=== PATIENT | female | born 1975 | race Caucasian/White ===

== ENCOUNTER 2020-02-13 10:05 | Observation (INO) | payer BC, SELFPAY ==
[2020-02-09 12:14] VITALS: BMI 30.4
[2020-02-09 12:25] LABS: Add Urine Microscopic? YES; Bilirubin Urine Neg (NEGATIVE); Blood Urine Trace (Negative); Glucose Urine UA Norm (Normal); Ketones Urine Negative (Negative); Leukocyte Esterase Urine Negative (Negative); Nitrate Urine Negative (Negative); OR HCG Qualitative Urine Negative (Negative); Protein Urine Neg (Negative); Urine Appearance Clear (CLEAR); Urine Color Yellow (Yellow); Urobilinogen Urine Norm (Negative)
[2020-02-09 12:36] LABS: Add Urine Culture? No; Bacteria Urine 1+; Mucus Urine TRACE; RBC Urine 0-4 /hpf (0-2)
--- NOTE | 2020-02-09 12:42 | ANES.PREANE2 ---
Pre-Anesthetic Assessment Pre-Anesthetic Assessment: Height/Weight: Height 1.73 m Weight 90.718 kg Preop Diagnosis: Cervical intraepithelial neoplasia 2, Dysmenorrhea Proposed Procedure: Operation Date: 02/13/20 07:00 Proposed Procedures p Laparoscopic Assist Vaginal Hystectomy 39708 N87.1 N94.6(Not Applicable) - Jadiel Olguin MD s poss Total Laparoscopic Hysterectomy(Not Applicable) - Jadiel Olguin MD Familial anesthetic complications: none Social: Social History: Tobacco Packs per day: 1 ppd Exam: Pre-Anes Outpt Exam: alert, oriented x 3, clear to auscultation bilaterally and regular rate & rhythm Airway: Cervical ROM: WNL MP: 2 Dentition: Partials Pulmonary: Pulmonary: None reported CV/HEM: CV/HEM: Arrythmia Comments: tachycardia : : None reported Hepatic: Hepatic: None reported GI: GI: None reported Metabolic: Metabolic: None reported Musc/skel: Musc/skel: Lower Back Pain Neuropsych: Neuropsych: None reported Anesthetic Plan: ASA status: 2 Anesthesia: General Risk of > 500 ml blood loss (7ml/kg in children): No PFSH Anesthesia PFSH: Medical History (Updated 12/19/19 @ 13:57 by Jadiel Olguin MD) Migraine with aura and without status migrainosus Social History Smoking and tobacco status: current every day smoker cigarettes Packs smoked per day: 1 Alcohol intake: current Alcohol intake frequency: few times a week Substance/Drug Use: never Additional social history: well balanced diet Female Reproductive History: Para: 2 Spontaneous abortions: No Data Anesthesia Other Labs: Laboratory Results - last 48 hr 02/09/20 02/09/20 12:07 12:07 Urine Color Yellow Urine Appearance Clear Urine pH 6.0 Ur Specific [place] 1.020 Urine Protein Neg Urine Glucose (UA) Norm Urine Ketones Negative Urine Blood Trace H Urine Nitrate Negative Urine Bilirubin Neg Urine Urobilinogen Norm Ur Leukocyte Esterase Negative Urine RBC 0-4 H Urine WBC 10-15 H Ur Squamous Epith Cells 5-10 H Urine Bacteria 1+ H Urine Mucus Trace Urine HCG, Qual Negative Cardiac Studies: No Data to Display
[2020-02-09 12:54] LABS: Basophils % 0.6 %; Eosinophils # 0.1 10^3/uL (0.0-0.8); Eosinophils % 1.6 %; Hematocrit 44.8 % (37.0-47.0); Hemoglobin 15.2 g/dL (11.5-15.3); Lymphocytes # 2.2 10^3/uL (0.8-4.8); Lymphocytes % 33.2 %; Mean Corpuscular HGB Conc 33.9 g/dL (30.0-36.0); Mean Corpuscular Hemoglobin 32.4 pg (28.0-34.0); Mean Corpuscular Volume 95.5 fL (81-99); Mean Platelet Volume 10.3 fL (7.4-10.4); Monocytes # 0.5 10^3/uL (0.2-0.9); Monocytes % 6.9 %; Neutrophils # 3.9 10^3/uL (1.8-7.7); Neutrophils % 57.4 %; Nucleated Red Blood Cells % 0 %; Platelet Count 288 10^3/cmm (130-400); Red Blood Count 4.69 10^6/uL (4.1-5.3); Red Cell Distribution Width 12.2 % (12.1-15.1); White Blood Count 6.7 10^3/uL (4.0-10.0)
[2020-02-13] VITALS (20 sets, daily range): BP systolic 120–152; BP diastolic 78–104; PULSE 67–88; RESP 12–23; TEMP 36.2–36.7; O2SAT 97–100
[2020-02-13] MEDS: ketorolac 30 mg/mL INJ IVP (06:29)
[2020-02-13] MEDS: sodium chloride 0.9% 1,000 ML 30 ML IV (06:29)
[2020-02-13] MEDS: phenazopyridine 100 mg Tablet 200 MG PO ×2 (06:30→14:26)
[2020-02-13 06:35] LABS: OR HCG Qualitative Urine Negative (Negative)
[2020-02-13] MEDS: scopolamine 1.5 Patch 1 PATCH TRANSDERMA (06:36)
--- NOTE | 2020-02-13 06:46 | P.HPUD_ITS ---
Surgery/Procedure H&P Update DATE OF PROCEDURE: February 13, 2020 DATE H&P PERFORMED: 02/09/20 H&P UPDATE INFORMATION: I have reviewed H&P completed within last 30 days, I have examined patient prior to procedure, No changes to prior documentation and H&P is in [facility] [place] on date indicated PREOP DIAGNOSIS: Cervical intraepithelial neoplasia 2, Dysmenorrhea PLANNED PROCEDURE: Operation Date: 02/13/20 07:00 Proposed Procedures p Laparoscopic Assist Vaginal Hystectomy 11763 N87.1 N94.6(Not Applicable) - Jadiel Olguin MD s poss Total Laparoscopic Hysterectomy(Not Applicable) - Jadiel Olguin MD
--- NOTE | 2020-02-13 07:00 | P.ANESUD_ITS ---
Pre-Anesthetic Update Pre-Anesthetic Assessment: Date of Surgery/Procedure: 02/13/20 Preop Ramona gnosis: Cervical intraepithelial neoplasia 2, Dysmenorrhea Proposed Procedure: Operation Date: 02/13/20 07:00 Proposed Procedures p Laparoscopic Assist Vaginal Hystectomy 94229 N87.1 N94.6(Not Applicable) - Jadiel Olguin MD s poss Total Laparoscopic Hysterectomy(Not Applicable) - Jadiel Olguin MD Any changes to Pre-Anesthetic Assessment?: No Last Intake: Intake Last Liquid Date 02/12/20 Last Liquid Time 21:30 Last Solid Date 02/12/20 Labs Last 48hrs: Laboratory Results - last 48 hr 02/13/20 06:10 Urine HCG, Qual Negative Vitals: Temperature 98.1 F 02/13/20 06:20 Temperature Source Temporal Artery S can 02/13/20 06:20 Pulse Rate 74 02/13/20 06:20 Respiratory Rate 18 02/13/20 06:20 Blood Pressure 120/83 02/13/20 06:20 Blood Pressure [place] n 95 02/13/20 06:20 Pulse Oximetry 98 02/13/20 06:20 Oxygen Delivery Me thod 02/13/20 06:20 Exam: Pre-Anes Outpt Exam: alert, oriented x 3, clear to auscultation bilaterally and regular rate & rhythm Cardiac Studies: No Data to Display
--- NOTE | 2020-02-13 08:44 | SUR.OPER ---
Updated partner via cell phone on patient progress.
--- NOTE | 2020-02-13 09:55 | P.OP_ITS ---
Operative Report Date of procedure: February 13, 2020 Pre-op Diagnosis: Cervical intraepithelial neoplasia 2, Dysmenorrhea Post-op Diagnosis: Cervical intraepithelial neoplasia 2, Dysmenorrhea Procedure Done: Total laparoscopic hysterectomy with bilateral salpingectomy Specimens removed/disposition: Uterus, cervix, bilateral fallopian tubes Surgeon: Jadiel Olguin [employer] Management Professor: RENATO Zaman Anesthesia: General Estimated blood loss (mL): 100 IV fluids (mL): 900 Complications: None Brief History: Patient is a 44-year-old 2, para 2-0-0-2 who is status post tubal ligation. She presented to the office due to abnormal Pap smears. She had had 2 prior LEEP's. Her most recent Pap smear had shown ASCUS with positive high risk HPV. Colposcopy was performed which showed NELY-2. On exam in the office she had essentially no cervix left within the vagina with the cervix essentially flush with the vaginal wall. This precluded any further LEEPs. In addition she had also been having significant cramping with her periods. Questions were answered. She is presenting for hysterectomy. Procedure: The patient was taken to the operating room where general anesthesia was obtained. She was prepped and draped in the usual sterile fashion in the dorsal supine position with legs in Matthew style stirrups. Sequential compression boots were placed prior to starting the case. Garner catheter was inserted and exam under anesthesia was performed. She was found to have minimal uterine prolapse. Weighted speculum was placed in the vagina and the cervix was grasped with a single-tooth tenaculum. Size 35 McCarus-Volker Fornisee uterine manipulator was placed. The infraumbilical region was injected with 0.5% Marcaine plain. Skin incision was made with a knife in the lower edge of the navel and a size 10 trocar and sheath were inserted under direct visualization using an Optiview type technique. Trocar was removed and replaced with just the laparoscope confirming intra-abdominal placement. The anterior abdominal wall was inspected and noted to be free of adhesions. In the right and left lower quadrants, lateral to the inferior epigastric vessels, the skin was injected with 0.5% Marcaine plain. Skin incisions were made with the knife and a 5 mm trocar and sheath were inserted under direct visualization at each site. Approximately 2 cm above the pubic symphysis in the midline, the skin was injected with 0.5% Marcaine plain. Skin incision was made with a knife and a 5 mm trocar and sheath were inserted under direct visualization. The pelvis was thoroughly inspected. Evidence of prior tubal ligation was seen. Ovaries and tubes appeared normal. No uterine abnormalities noted. Using the Voyant sealing device, the left mesosalpinx was sealed and cut and the dissection carried under the tube until the corner of the uterus was reached. The utero-ovarian ligament and vessels were sealed and cut. The round ligament was sealed and cut and the dissection carried along the lateral aspect of the uterus to approximately the level of the internal os. The broad ligament was and dissection carried over the lower uterine segment. Using the Voyant sealing device, the right mesosalpinx was sealed and cut and the dissection carried under the tube until the corner of the uterus was reached. The utero-ovarian ligament and vessels were sealed and cut.. The round ligament was sealed and cut and the dissection carried along the lateral aspect of the uterus to approximate the level of the internal os. The broad ligament was and the dissection carried over the lower uterine segment to meet with the dissection from the contralateral side. The bladder was dissected away from the lower uterine segment. The uterine vessels were sealed at the level of the cervix and cut bilaterally. Using monopolar cautery with the hook attachment, the vagina was opened anteriorly to the edge of the cup of the uterine manipulator. Using the cup as a guide, the vagina was opened circumferentially around the cervix. Once the cervix was completely free from the vagina, the uterus was removed through the vagina. Minimal bleeding was present from the vaginal cuff. Using 2-0 PDO barbed suture, the cuff was closed in a running fashion . This was started on the right side and was carried across to the left side. Care was taken to incorporate the peritoneum posteriorly and the vaginal mucosa anteriorly and posteriorly into the closure. The anterior peritoneum at the vaginal cuff was closed over top of the vaginal cuff itself using the 2-0 PDO suture. The cuff was noted to be hemostatic. The pelvis was thoroughly irrigated and noted to be hemostatic. The areas of dissection were inspected under normal and low pressure at the end of the procedure. The abdomen was deflated and the ports removed. The 5 mm sites were closed with single stitches of 4-0 Vicryl suture. The umbilical site was closed with a deep stitch of 4-0 Vicryl suture followed by subcuticular closure of the skin. Steri-Strips were applied. The vagina was inspected and the cuff was noted to be reapproximated well. The cuff itself was noted to be hemostatic vaginally. Patient tolerated the procedures well. Sponge needle and instrument counts were correct. DRAINS: Garner catheter FINDINGS: Minimal uterine prolapse. Cervix was flush with the vaginal wall. Evidence of prior tubal ligation noted. Otherwise normal-appearing uterus, tub es, and ovaries. POSTOPERATIVE STATUS: The patient was transferred to the recovery room in satisfactory condition.
--- NOTE | 2020-02-13 09:56 | SUR.PHASEI ---
0970 PATIENT TO PACU AT THIS TIME. RR EVEN AND UNLABORED. PWD. PLACED ON SIMPLE MASK AT 8L, SPO2 100%. PATIENT NOTED TO BE SLEEPING. VALERA CATH IN PLACE. 4 INCISIONS TO ABDOMEN, CDI.
[2020-02-13] MEDS: fentaNYL 50 mcg/mL INJ 2mL IVP (10:09)
--- NOTE | 2020-02-13 10:24 | SUR.PHASEI ---
1024 PATIENT REPORTS PAIN 8/, DUE TO NEEDING TO VOID. VALERA IN PLACE, DRAINING. DR ORTA NOTIFIED.
--- NOTE | 2020-02-13 10:44 | SUR.PHASEI ---
1028 PATIENT TO OB AT THIS TIME. RR EVEN AND UNLABORED. PATIENT COMPLAIN OF SENSATION NEEDING TO VOID. AMBULATORY FROM GURNEY TO BED WITHOUT DIFFICULTY.
[2020-02-13] MEDS: morphine 4 mg/mL SDV 1 mL IVP ×2 (10:56→11:31)
[2020-02-13] MEDS: HYDROcodone-acetaminophen 5-325 mg Tablet PO ×2 (10:56→18:34)
[2020-02-13] MEDS: dextrose 5%-lactated ringers 1,000 ML 125 ML IV (11:27)
--- NOTE | 2020-02-13 17:31 | PM.DCS ---
Discharge Providers Date of Admission: 02/13/20 10:05 Date of Discharge: February 13, 2020 Attending Provider at Admission: Jadiel Olguin MD Attending Provider at Discharge: Jadiel Olguin MD Primary Care Provider: Dakota Bird MD Diagnoses at Discharge Discharge Diagnosis (1) Cervical intraepithelial neoplasia II: Status: Acute (2) Dysmenorrhea: Status: Acute Reason for Visit Reason for Visit: Reason For Visit: Recurrent NELY 2 Dysmenorrhea Hospital Course Hospital Course: Patient is a 44-year-old white female 2, para 2-0-0-2 is status post tubal ligation. She has a history of recurrent NELY-2. She has had 2 prior LEEP's. Her most recent Pap smear showed ASCUS with positive high risk HPV. Colposcopy was performed which again showed NELY-2. However, on exam, she had essentially no cervix left vaginally with the cervix essentially flush with the vagina. As a result hysterectomy was recommended. In addition she was reporting significant cramping with her periods as well. At this point she was presenting for hysterectomy. A total laparoscopic hysterectomy with bilateral salpingectomy was performed on 02/13/2020. She did well following surgery. Patient was admitted to the floor for post operative management. She was initially treated with parenteral pain medications but was able to be switched to oral medications later on in the afternoon and did well with these. She was able to ambulate without lightheadedness or dizziness. Garner catheter was discontinued later on in the day. She was started on clear liquids and tolerated this well without nausea or vomiting. By the evening of the day of surgery, she was doing well and was requesting to go home. PHYSICAL EXAM: See below. PLAN Discharged home. Discharge instructions discussed with patient. Patient instructed to use stool softeners at home. She was given prescriptions for Pyridium, ibuprofen, and Hayes. Physical Exam Const: COMMON NORMALS: no apparent distress, average body habitus, alert and well nourished GENERAL APPEARANCE: well developed ORIENTATION/CONSCIOUSNESS: Yes oriented to person, Yes oriented to place and Yes oriented to time GI: COMMON NORMALS: soft to palpation, no hepatosplenomegaly and no masses INSPECTION: Yes incision (Clean dry and intact with bandages present.) AUSCULTATION: Yes normoactive bowel sounds PALPATION: Yes soft, Yes tender (Mildly tender in the lower abdomen.), Yes no hepatosplenomegaly and No hernia : EXTERNAL FEMALE EXAM: No hernia Neuro: SENSORIUM/ORIENTATION: Yes alert, Yes oriented to person, Yes oriented to place and Yes oriented to time Psych: COMMON NORMALS: affect normal MOOD & AFFECT: Yes euthymic mood Urinary Catheter Management^: Garner: Cath Placed During This Visit: yes Urinary Catheter Date of Insertion: 02/13/20 Urinary Catheter Time of Insertion: 07:45 Discharge Data Data Completed and Pending: Pending at discharge Category Date Time Status ES surgery / GI i mages Routine Exams 02/13/20 06:44 Ordered Hemagram Timed Lab 02/14/20 05:00 Ordered Pathology: Surgic al [PTH] Routine Pth 02/13/20 09:57 Received Labs from last 24 hours 02/13/20 02/13/20 06:20 06:10 Urine HCG, Qual Negative Blood Type B Positive Rho(D) Type Positive Antibody Screen Negative Vitals: Last Vital Signs Temp 97.7 F 02/13/20 15:30 Pulse 88 02/13/20 16:44 Resp 18 02/13/20 16:44 BP 134/82 02/13/20 15:30 Pulse Ox 98 02/13/20 16:44 Discharge Plan Discharge Patient Disposition: Home, Self-Care Condition: Stable Prescriptions: New hydrocodone-acetaminophen 5-325 mg Tablet 1 - 2 tab PO Q6H PRN (Reason: Moderate To Severe Pain) Qty: 30 RF: 0 ibuprofen 800 mg Tablet 800 mg PO TID PRN (Reason: pain) Qty: 40 RF: 0 phenazopyridine 200 mg tablet 200 mg PO TID PRN (Reason: Bladder irritation) Qty: 12 RF: 0 Continued diphenhydramine HCl [Benadryl] 25 mg capsule 25 mg PO .night PRN (Reason: sleep) RF: 0 Discharge Orders: Discharge Order (Routine); Ordered 02/13/20 Ordered By: Jadiel Olguin Referrals: Jadiel Olguin MD [Physician] - 2 weeks Discharge Diet: Regular Discharge Activity: Limit activity as instructed Patient Instructions: OB Abdominal Surgery - [facility] Discharge Attestations Time Spent in Discharge Care*: less than 30 min Quality Metrics Clinical Quality Measures During this hospital stay, did patient experience: None Coding Level of Care Code Acute Rehab Services Aide for Chg Fwd Diagnoses Cervical intraepithelial neoplasia II N87.1 Dysmenorrhea N94.6
[2020-02-13] MEDS: docusate sodium 100 mg Capsule PO (18:34)
== END 2020-02-13 18:30 | disposition home or self-care (01) ==
LOC: OBGYN 10:06
PROVIDERS: Admitting Provider Obstetrics & Gynecology; Family Provider Family Medicine; PCP Family Medicine; Visit Provider Obstetrics & Gynecology
PROC: 0UT94ZZ Resection of Uterus, Percutaneous Endoscopic Approach (ICD-10-PCS; CPT 58571; 2020-02-13 07:00)
DX: N87.1 Moderate cervical dysplasia (principal); F17.210 Nicotine dependence, cigarettes, uncomplicated; N94.6 Dysmenorrhea, unspecified
CPT/HCPCS: 58571; 12345; 51798; 81001; 84703; 85025; 86850; 86900; 87086; 88307; 96360; 96361; 96374; 96375; G0378; J0690; J1885; J2001; J2250; J2270; J2405; J2704; J3010; J3490; J7030

== ENCOUNTER 2021-10-06 15:06 | Outpatient (CLI) | payer OTHER, SELFPAY ==
--- NOTE | 2021-10-06 15:21 | MM_ITS ---
WS: [id number] BILATERAL SCREENING DIGITAL MAMMOGRAM WITH CAD HISTORY: SCREENING COMPARISON: 10/06/2018 and 06/21/2017 Bilateral CC and MLO views submitted. Computer aided detection analyzed. Breast composition: There are scattered areas of fibroglandular density. No suspicious masses, microc alcifications or architectural distortion. MM/[place] [id number] IMPRESSION: BI-RADS: 1-Negative FOLLOW UP: 1 Year Follow-up
== END 2021-10-06 15:07 | disposition home or self-care (01) ==
LOC: RADSHAW 15:11
PROVIDERS: PCP Family Medicine; Visit Provider Family Medicine
DX: Z12.31 Encounter for screening mammogram for malignant neoplasm of breast (principal)
CPT/HCPCS: 77067

== ENCOUNTER 2022-11-17 15:05 | Outpatient (CLI) | payer OTHER, SELFPAY ==
--- NOTE | 2022-11-17 15:21 | MM_ITS ---
WS: [id number] VIEWS: MLO and CC views both breasts. 3D digital tomosynthesis is also included in this exam. Comparison made with prior exam of 12/18/2014, 03/27/2016, 06/21/2017, 10/06/2018, 10/06/2021.. Findings: There was no sign of mass, architectural distortion or suspicious calcification in either breast. Sc attered fibroglandular densities MM/[place] [id number] Impression: BI-RADS: 2-Benign FOLLOW-UP: 1 Year Follow-up This mammogram was also analyzed by the Computer Aided Detection System R2 Imag e Director [employer].
== END 2022-11-17 15:06 | disposition home or self-care (01) ==
PROVIDERS: PCP Family Medicine; Visit Provider Family Medicine
DX: Z12.31 Encounter for screening mammogram for malignant neoplasm of breast (principal)
CPT/HCPCS: 77063; 77067

== ENCOUNTER 2023-03-30 20:11 | Emergency (ER) | payer OTHER, SELFPAY ==
--- NOTE | 2023-03-30 20:15 | ECG_ITS ---
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 Measurements Intervals [place] Rate: 174 P: 0 IN: 0 QRS: -29 QRSD: 97 T: 30 QT: 250 QTc: 426 Interpretive Statements SUPRAVENTRICULAR TACHYCARDIA BORDERLINE LEFT AXIS DEVIATION [QRS AXIS < -20] INCOMPLETE RIGHT BUNDLE BRANCH BLOCK [90+ ms QRS DURATION, TERMINAL R IN V1/V2, 40+ ms S IN I/aVL/V4/V5/V6] MINIMAL ST DEPRESSION [0.025+ mV ST DEPRESSION] CRITICAL TEST RESULT No previous ECG available for comparison Electronically Signed On 03-31-2023 0:23:11 CDT by Atul Russ M.D. [id number]
[2023-03-30 20:32] VITALS: BP 164/78; PULSE 174; RESP 18; O2SAT 98; BMI 32.6
--- NOTE | 2023-03-30 20:35 | PC.NURSE ---
PROVIDER PRESENT AT BEDSIDE. PROVIDER ATTEMPTED TO CONVERT PATIENT USING VAGAL MANEUVER X 2. PATIENT DID NOT RESPOND. HEART RATE REMAINED IN 180S. 2237 - 6 ADENOSINE ADMINISTERED BY PROVIDER, HR 160. HR CONVERTED TO 118. PATIENT ALERT AND ORIENTED, SPEAKING TO NURSE. MONITOR PATIENT FOR 10 MINUTES PER PROVIDER.
--- NOTE | 2023-03-30 20:38 | ED_ITS ---
HPI - Arrhythmia/Palpitations General: Chief Complaint: Arrhythmia/Palpitations Stated Complaint: heart racing Time Seen by Provider: 03/30/23 20:25 Source: patient Mode of arrival: ambulatory Limitations: no limitations History of Present Illness: 47-year-old female who does have a history of SVT she states she is at work tonight started to like her heart was racing roughly 30 minutes ago states she is typically able to convert herself with vagal maneuvers but was not able to tonight. She is in SVT with a heart rate in the 170s she denies any pain does have some diaphoresis which she states is typical for her SVT. Denies any shortness of breath currently. Associated symptoms: Deny anxiety or nausea Review of Systems Const: Denies: fever(s) Card: Reports: palpitations Resp: Denies: dyspnea GI: Denies: nausea Skin/Breast: Denies: rash Neuro: Denies: headache(s) Psych: Denies: anxiety PFSH ED PFSH: Medical History Migraine with aura and without status migrainosus Surgical History History of hysterectomy (02/13/20) Total laparoscopic hysterectomy with bilateral salpingectomy. Dx: NELY 2, Dysmenorrhea. Performbed by Dr. Olguin at [facility] in [place], [place]. S/P carpal tunnel release (~2012) Bilateral S/P section (11/24/00) With tubal ligation. Performed by Dr. Nunez at [facility] in [place], [place]. S/P tubal ligation (11/24/00) Performed at time of section by Dr. Encarnacion Family History Mother Hypertension Heart disease Stroke Thyroid disease Social History Smoking and tobacco status: current every day smoker cigarettes Packs smoked per day: 1 Alcohol intake: current Alcohol intake frequency: few times a week Substance/Drug Use: never Additional social history: well balanced diet Female Reproductive History: Para: 2 Spontaneous abortions: No Physical Exam Const: COMMON NORMALS: patient oriented x3 HENMT: COMMON NORMALS: normocephalic and atraumatic HEAD & SCALP: normocephalic and atraumatic Neck/C-Spine: COMMON NORMALS: full ROM and supple Chest: COMMONS NORMALS: normal inspection of the chest and normal palpation of entire chest wall Resp: COMMON NORMALS: normal respiratory effort, No retractions, No use of accessory muscles and clear to auscultation bilaterally AUSCULTATION: clear to auscultation bilaterally Cardio: COMMON NORMALS: No murmurs present (Cardio) RATE: tachycardic GI: INSPECTION: Yes normal to inspection Extremity: COMMON NORMALS: normal to inspection and full ROM Neuro: COMMON NORMALS: patient oriented x3, moves all extremities and no focal motor deficits Psych: COMMON NORMALS: mental status grossly normal, Normal thought process present and cooperative THOUGHT PROCESS: Normal thought process present Skin: COMMON NORMALS: no rashes or lesions noted and no wounds GENERAL SKIN EXAM: no rashes or lesions noted Course Vital Signs: Vital signs: Vital Signs Pulse Rate 109 H 03/30/23 20:51 Respiratory Rate 14 03/30/23 20:51 Blood Pressure 141/102 03/30/23 20:51 Pulse Oximetry 100 03/30/23 20:51 Oxygen Delivery Me thod Room Air 03/30/23 20:51 MDM - Arrhythmia/Palpitations Medical Decision Making Patient presents here with SVT she was successfully converted here with adenosine she has been at her baseline she is to take the rest the night off she is to follow-up with her PCP she is stable for discharge she had no chest pain or shortness of breath. EKG Data EKG 1: I personally reviewed and interpreted this EKG as follows: EKG interpretation date: 03/30/23 EKG interpretation time: 20:29 Interpretation: svt hr [address] or t wave abnormalities qrs 97 qtc 343 Discharge Plan Discharge Patient Disposition: Home Clinical Impression: SVT (supraventricular tachycardia) Condition: Stable Prescriptions: No Action diphenhydramine HCl [Benadryl] 25 mg capsule 25 mg PO .night PRN (Reason: sleep) metronidazole 500 mg tablet 500 mg PO BID 5 Days Qty: 10 0RF ibuprofen 800 mg Tablet 800 mg PO TID PRN (Reason: pain) Qty: 40 0RF Discharge Orders: Discharge ED (Routine); Ordered 03/30/23 Ordered By: Triston De La Torre Referrals: Dakota Bird MD [Primary Care Provider] - 1-3 days Discharge Diet: Advance as tolerated Discharge Activity: Resume usual activity Patient Instructions: Supraventricular Tachycardia (ED) Stand Alone Forms: Work/School Release Coding 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
[2023-03-30] MEDS: adenosine 3 mg/mL SDV 2mL 6 MG IVP (20:41)
[2023-03-30 20:51] VITALS: BP 141/102; PULSE 109; RESP 14; O2SAT 100
--- NOTE | 2023-03-30 21:01 | ECG_ITS ---
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 Measurements Intervals [place] Rate: 100 P: 67 FL: 152 QRS: -22 QRSD: 94 T: 18 QT: 329 QTc: 425 Interpretive Statements SINUS TACHYCARDIA BORDERLINE LEFT AXIS DEVIATION [QRS AXIS < -20] INCOMPLETE RIGHT BUNDLE BRANCH BLOCK [90+ ms QRS DURATION, TERMINAL R IN V1/V2, 40+ ms S IN I/aVL/V4/V5/V6] ABNORMAL RHYTHM ECG Compared to ECG 03/30/2023 20:29:51 Supraventricular tachycardia no longer present ST (T wave) deviation no longer present Electronically Signed On 03-31-2023 0:23:36 CDT by Atul Russ M.D. [id number]
[2023-03-30 21:23] VITALS: BP 107/71; PULSE 103; RESP 16; O2SAT 92
== END 2023-03-30 21:24 | disposition home or self-care (01) ==
PROVIDERS: Emergency Provider Emergency Medicine; PCP Family Medicine
DX: I47.1 Supraventricular tachycardia (principal); F17.210 Nicotine dependence, cigarettes, uncomplicated
CPT/HCPCS: 93005; 96374; 99284; J0153

== ENCOUNTER 2023-05-06 10:04 | Outpatient (CLI) | payer OTHER, SELFPAY ==
--- NOTE | 2023-05-06 10:00 | USCV_ITS ---
Vita Espinosa Age: 47 Gender: F : 1975 Exam Date: 05/06/2023 10:49 Ordering Phys: Dakota Bird MD Technologist: Anel Collier [place] [facility] [place]: SVT BP: 117 / 74 HR: 68 Rhythm: Sinus Technical Quality: Adequate MEASUREMENTS (Male / Female) Normal Values 2D ECHO LV Diastolic Diameter PLAX 4.0 cm 4.2 - 5.9 / 3.9 - 5.3 cm LV Systolic Diameter PLAX 2.7 cm IVS Diastolic Thickness 1.2 cm 0.6 - 1.0 / 0.6 - 0.9 cm IVS Systolic Thickness 1.4 cm LVPW Diastolic Thickness 1.1 cm 0.6 - 1.0 / 0.6 - 0.9 cm LVPW Systolic Thickness 1.6 cm LVOT Diameter 2.0 cm LV Ejection Fraction 2D Teich 59.6 % LV Ejection Fraction MOD 2C 78.4 % LV Ejection Fraction 2C AL 78.6 % LA Diameter 2.4 cm LA Width 2.9 cm LA Height 5.5 cm RA Width 2.8 cm RA Height 2.7 cm Aorta at Sinotubular Diameter 2.7 cm IVC Diameter 1.9 cm M-MODE Aortic Annulus Diameter 2.7 cm LA Ao Ratio MM 1.0 MV E Point Septal Separation 0.2 cm DOPPLER AV Peak Velocity 125.0 cm/s LVOT Peak Velocity 79.0 cm/s AV Area Cont Eq vti 2.3 cm squared AV Area Cont Eq pk 2.0 cm squared MV Peak Velocity 111.0 cm/s MV Area PHT 5.0 cm squared Mitral E to A Ratio 1.0 MV E' Velocity 48.5 cm/s Mitral E to MV E' Ratio 7.7 Mitral E to LV E' Lateral Ratio 8.1 Mitral E to LV E' Septal Ratio 7.4 TR Peak Velocity 142.3 cm/s TR Peak Gradient 8.1 mmHg Right Atrial Pressure 5.0 mmHg Pulmonary Artery Systolic Pressu 13.1 mmHg PV Peak Velocity 84.0 cm/s RV Acceleration Time 0.2 s RV Ejection Time 0.3 s RV AcT/ET 0.6 FINDINGS Left Ventricle Left ventricle is normal in size. LV systolic function is normal with EF of 55 to 60%. No regional wall motion abnormalities are seen. Right Ventricle Normal in size and function Right Atrium Normal in size Left Atrium Normal in size Mitral Valve Structurally normal mitral valve. Mild mitral regurgitation. Aortic Valve Structurally normal aortic valve. No significant stenosis or regurgitation. Tricuspid Valve Mild tricuspid regurgitation. Insufficient TR jet to calculate RVSP. Pulmonic Valve Not well-visualized. Pericardium Normal Aorta Normal in size IVC Appears to be normal CONCLUSIONS LV systolic function is normal with EF 55 to 60% Mild mitral regurgitation. Mild tricuspid regurgitation No comparison studies available Ronak Hill MD (Electronically Signed) Final Date: 08 May 2023 16:48 S
== END 2023-05-06 10:05 | disposition home or self-care (01) ==
PROVIDERS: PCP Family Medicine; Visit Provider Family Medicine
DX: I47.1 Supraventricular tachycardia (principal); I34.0 Nonrheumatic mitral (valve) insufficiency; I07.1 Rheumatic tricuspid insufficiency
CPT/HCPCS: 93306

== ENCOUNTER 2024-08-31 07:35 | Outpatient (CLI) | payer OTHER, SELFPAY ==
--- NOTE | 2024-08-31 07:43 | MM_ITS ---
WS: [id number] SCREENING DIGITAL TOMOSYNTHESIS MAMMOGRAM WITH CAD HISTORY: SCREENING COMPARISON: 11/17/2022, 10/06/2021 Bilateral CC and MLO with tomosynthesis views submitted. Synthetic mammography reviewed. Computer aid ed detection analyzed. Breast composition: There are scattered areas of fibroglandular density. No suspicious masses, microc alcifications or architectural distortion. MM/MM scr BI tomosynthesis [id number] IMPRESSION: BI-RADS: 1 - Negative. FOLLOW UP: 1 Year Follow-up
== END 2024-08-31 07:36 | disposition home or self-care (01) ==
LOC: RAD 07:36
PROVIDERS: PCP Family Medicine; Visit Provider Nurse Practitioner Women's Health
DX: Z12.31 Encounter for screening mammogram for malignant neoplasm of breast (principal); R92.323 Mammographic fibroglandular density, bilateral breasts
CPT/HCPCS: 77063; 77067

== ENCOUNTER 2025-01-27 06:30 | Emergency (ER) | payer OTHER, SELFPAY ==
[2025-01-27 06:32] VITALS: BP 164/86; PULSE 75; RESP 16; TEMP 36.6; O2SAT 99; BMI 32.2
--- NOTE | 2025-01-27 06:45 | XRR_ITS ---
PROCEDURE INFORMATION: Exam: XR Chest Exam date and time: 01/27/2025 6:50 AM Age: 49 years old Clinical indication: Pain; Radiating and left-sided; Additional info: Chest pain TECHNIQUE: Imaging protocol: Radiologic exam of the chest. Views: 1 view. COMPARISON: No relevant prior studies available. FINDINGS: Lungs: Unremarkable. No consolidation. Pleural spaces: Unremarkable. No pleural effusion. No pneumothorax. Heart/Mediastinum: Unremarkable. No cardiomegaly. Bones/joints: Unremarkable. XR/XR chest 1V portable [id number] IMPRESSION: No acute findings.
--- NOTE | 2025-01-27 06:48 | ECG_ITS ---
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 Measurements Intervals [place] Rate: 68 P: 5 SD: 121 QRS: -14 QRSD: 90 T: 27 QT: 391 QTc: 418 Interpretive Statements SINUS RHYTHM LOW QRS VOLTAGE IN PRECORDIAL LEADS [QRS DEFLECTION < 1.0 mV IN CHEST LEADS] POSSIBLE RIGHT VENTRICULAR CONDUCTION DELAY [RSR (QR) IN V1/V2] Compared to ECG 03/30/2023 21:01:09 Low QRS voltage now present Sinus tachycardia no longer present Incomplete right bundle-branch block no longer present Electronically Signed On 01-28-2025 12:38:03 WEIGHER AND MIXER by Juaquin Thapa M.D. [id number]
[2025-01-27] MEDS: aspirin 81 mg Chew Tablet 324 MG PO (06:58)
[2025-01-27 07:02] LABS: Basophils # 0.1 10^3/uL (0.0-0.1); Basophils % 0.6 %; Eosinophils # 0.2 10^3/uL (0.0-0.8); Eosinophils % 1.9 %; Hematocrit 40.1 % (36-47); Lymphocytes # 3.2 10^3/uL (0.8-4.8); Lymphocytes % 38.1 %; Mean Corpuscular HGB Conc 34.2 g/dL (30-55); Mean Corpuscular Hemoglobin 31.2 pg (27-33); Mean Corpuscular Volume 91.3 fl (85-98); Mean Platelet Volume 9.8 fL (7.4-10.4); Monocytes # 0.7 10^3/uL (0.2-0.9); Monocytes % 8.2 %; Neutrophils # 4.22 10^3/uL (1.8-7.7); Nucleated Red Blood Cells % 0 %; Platelet Count 299 10^3/cmm (157-399); Red Blood Count 4.39 10^6/uL (3.85-5.65); Red Cell Distribution Width 12.2 % (12.1-15.1); White Blood Count 8.29 10^3/uL (3.29-11.43)
--- NOTE | 2025-01-27 07:04 | ED_ITS ---
HPI - Chest Pain 2 General: Chief Complaint: Chest Pain Stated Complaint: SOB Chest pain radiating to arm Time Seen by Provider: 01/27/25 06:45 History of Present Illness: 49-year-old female presents emergency ro om with complaints of chest pain. 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 Radiates into her arm. No fever sweats chills no productive cough no vomiting no diarrhea. She denies abdominal pain. She has no known history of coronary artery disease or arrhythmias. There is no family history of early coronary artery disease. Associated symptoms: Deny abdominal pain, dyspnea or fever(s) Related Data Home Medications ?Medication ?Instructions ?Recorded ?Confirmed No Known Home Medications 01/27/2512/23 Allergies Allergy/AdvReac Type Severity Reaction Status Date / Time insect stings Allergy swelling Uncoded 05/04/23 14:00 Review of Systems 2 Const: Denies: fever(s) or chills Card: Denies: chest pain Resp: Denies: dyspnea GI: Denies: abdominal pain : Denies: dysuria, urinary frequency or urinary urgency Musc: Denies: neck pain or back pain Skin/Breast: Denies: rash PFSH ED 2 PFSH: Medical History No pertinent past medical history neghx: htn,dm,thyroid,dvt/pe PCP: Dr. 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 Dx: NELY 2, Dysmenorrhea. Performed by Dr. Olguin at [facility] [place]. Pathology demonstrated NELY 1-- no high grade lesion. S/P tubal ligation (11/24/00) Performed at time of section by Dr. Encarnacion S/P section (11/24/00) With tubal ligation. Performed by Dr. Nunez at [facility] in [place], [place]. S/P carpal tunnel release (~2012) Bilateral Family History Mother Hypertension Heart disease Afib Thyroid disease Hyperlipidemia Father Hyperlipidemia Heart disease Afib Cancer Prostate cancer Denies family history of Colon cancer Ovarian cancer Diabetes Breast cancer Uterine cancer Stroke Female Reproductive History: Para: 2 Spontaneous abortions: No Physical Exam 2 Const: COMMON NORMALS: no acute distress GENERAL APPEARANCE: cooperative and comfortable ORIENTATION/CONSCIOUSNESS: Yes awake, Yes oriented to person, Yes oriented to place and Yes oriented to time HENMT: COMMON NORMALS: normocephalic, atraumatic and hearing grossly normal bilaterally HEAD & SCALP: normocephalic and atraumatic Resp: COMMON NORMALS: normal respiratory effort, No retractions, No use of accessory muscles and clear to auscultation bilaterally AUSCULTATION: clear to auscultation bilaterally Cardio: COMMON NORMALS: regular rate, regular rhythm and No murmurs present (Cardio) RATE: regular rate RHYTHM: regular rhythm GI: COMMON NORMALS: Soft to palpation and No hepatosplenomegaly present A USCULTATION: Yes normoactive bowel sounds PALPATION: Yes Soft to palpation, No Tenderness to palpation present (GI), No Guarding due to palpation present (GI) and Yes No hepatosplenomegaly present Extremity: COMMON NORMALS: normal to inspection, capillary refill normal, no clubbing, cyanosis or edema, no calf tenderness and no pedal edema Neuro: SENSORIUM/ORIENTATION: Yes oriented to person, Yes oriented to place and Yes oriented to time Skin: COMMON NORMALS: no rashes or lesions noted GENERAL SKIN EXAM: no rashes or lesions noted Course 2 Vital Signs: Vital signs: Vital Signs Temperature 97.9 F 01/27/25 06:32 Pulse Rate 86 01/27/25 10:02 Respiratory Rate 15 01/27/25 09:41 Blood Pressure 127/78 01/27/25 10:02 Pulse Oximetry 99 01/27/25 10:02 Oxygen Delivery Me thod Room Air 01/27/25 06:32 MDM - Chest Pain Medical Decision Making EKG cardiac enzymes are negative. Chest x-ray unremarkable. No tachycardia no hypoxia. No evidence of pneumonia dissecting aneurysm PE or pneumothorax acute coronary syndrome ruled out with enzymes and EKGs patient is pain-free at this time. Will discharge her home. She has very little risk factors. After discussion with her patient prefers to follow-up with her primary care doctor to pursue any further testing such as cardiac stress testing if felt appropriate. Given her low risk I think that is appropriate at this time. Differential Diagnosis Likely acute massive pulmonary embolism (Pneumonia pneumothorax dissecting aneurysm) and acute myocardial infarction Medical Records I reviewed the patient's medical records. Lab Data I reviewed the patient's lab results. 01/27/25 06:41 01/27/25 06:41 Radiology Impressions Chest X-Ray 01/27/25 06:45 IMPRESSION: No acute findings. Laboratory Results WBC 8.29 10^3/uL (3.29-11.43) 01/27/25 06:41 RBC 4.39 10^6/uL (3.85-5.65) 01/27/25 06:41 Hgb 13.70 g/dL (11.27-16.99) 01/27/25 06:41 Hct 40.1 % (36-47) 01/27/25 06:41 MCV 91.3 fl (85-98) 01/27/25 06:41 MCH 31.2 pg (27-33) 01/27/25 06:41 MCHC 34.2 g/dL (30-55) 01/27/25 06:41 RDW 12.2 % (12.1-15.1) 01/27/25 06:41 Plt Count 299 10^3/cmm (157-399) 01/27/25 06:41 MPV 9.8 fL (7.4-10.4) 01/27/25 06:41 Neut % (Auto) 51.0 % 01/27/25 06:41 Lymph % (Auto) 38.1 % 01/27/25 06:41 [place] % (Auto) 8.2 % 01/27/25 06:41 Eos % (Auto) 1.9 % 01/27/25 06:41 Baso % (Auto) 0.6 % 01/27/25 06:41 Neut # (Auto) 4.22 10^3/uL (1.8-7.7) 01/27/25 06:41 Lymph # (Auto) 3.2 10^3/uL (0.8-4.8) 01/27/25 06:41 [place] # (Auto) 0.7 10^3/uL (0.2-0.9) 01/27/25 06:41 Eos # (Auto) 0.2 10^3/uL (0.0-0.8) 01/27/25 06:41 Baso # (Auto) 0.1 10^3/uL (0.0-0.1) 01/27/25 06:41 Nucleated RBC % (auto) 0 % 01/27/25 06:41 Nucleated RBCs # 0.0 /100WBC 01/27/25 06:41 Sodium 138 mmol/L (136-145) 01/27/25 06:41 Potassium 3.9 mmol/L (3.5-5.1) 01/27/25 06:41 Chloride 101 mmol/L (98-107) 01/27/25 06:41 Carbon Dioxide 29 mmol/L (22-29) 01/27/25 06:41 Anion Gap 11.9 (5-19) 01/27/25 06:41 BUN 21 mg/dL (6-20) H 01/27/25 06:41 Creatinine 1.0 mg/dL (0.5-0.9) H 01/27/25 06:41 GFR Calculation 58.9 mL/min (90-130) L 01/27/25 06:41 Glucose 96 mg/dL (65-115) 01/27/25 06:41 Calculated Osmolality 289 mOsm/kg (285-295) 01/27/25 06:41 Calcium 9.6 mg/dL (8.5-10.5) 01/27/25 06:41 Total Bilirubin 0.4 mg/dL (0.15-1.2) 01/27/25 06:41 AST 28 U/L (0-32) 01/27/25 06:41 ALT 38 U/L (0-33) H 01/27/25 06:41 Alkaline Phosphatase 111 U/L (35-105) H 01/27/25 06:41 Troponin T Baseline < 6 ng/L (0-10) 01/27/25 06:41 Troponin T 120 Minute 6.00 ng/L (0-10) 01/27/25 08:40 Delta Troponin T 0.24894 ABS# (0-10) 01/27/25 08:40 Total Protein 7.4 g/dL (6.6-8.7) 01/27/25 06:41 Albumin 4.7 g/dL (3.5-5.2) 01/27/25 06:41 Globulin 2.7 g/dL (1.3-4.6) 01/27/25 06:41 All radiology interpretation(s) finalized by discharge Discharge Plan Discharge Patient Disposition: Home Clinical Impression: Atypical chest pain Condition: Stable Prescriptions: No Action No Known Home Medications Discharge Orders: Discharge ED (Routine); Ordered 01/27/25 Ordered By: Hermilo Prekins Referrals: Dakota Bird MD [Primary Care Provider] - Discharge Diet: Usual diet Discharge Activity: Resume usual activity Patient Instructions: Opioid Safety, Pain Management Activity Restrictions/Additional Instructions: Thank you for choosing [facility] for your healthcare needs today. It is very important that you follow up as instructed or that you return to the Emergency Department should you have concerns or if your condition changes or worsens in any way. You are seen in the emergency room for complaint of chest pain your cardiac enzymes and EKG were normal your other vital signs were normal. Recommend you follow-up with your primary care doctor or return to the emergency room if you have recurrent symptoms Print Language: Mohawk Coding Level of Care Code ED Interactive Media Marketing Strategist for Vero Winchester
[2025-01-27 07:11] LABS: Troponin(5th) Baseline < 6 ng/L (0-10)
[2025-01-27 07:15] LABS: Alanine Aminotransferase 38 U/L (0-33); Albumin Level 4.7 g/dL (3.5-5.2); Alkaline Phosphatase 111 U/L (35-105); Anion Gap 11.9 (5-19); Aspartate Amino Transferase 28 U/L (0-32); Blood Urea Nitrogen 21 mg/dL (6-20); Calcium 9.6 mg/dL (8.5-10.5); Carbon Dioxide 29 mmol/L (22-29); Chloride 101 mmol/L (98-107); Globulin 2.7 g/dL (1.3-4.6); Glomerular Filtration Rate 58.9 mL/min (90-130); Glucose 96 mg/dL (65-115); Osmolality Calculated 289 mOsm/kg (285-295); Potassium 3.9 mmol/L (3.5-5.1); Sodium 138 mmol/L (136-145); Total Bilirubin 0.4 mg/dL (0.15-1.2); Total Protein 7.4 g/dL (6.6-8.7)
[2025-01-27 07:16] LABS: Creatinine Clr Calc Pharmacy 82.5118
[2025-01-27 09:05] LABS: Troponin 5 2HR Delta 0.00001 ABS# (0-10)
--- NOTE | 2025-01-27 09:15 | ECG_ITS ---
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 Measurements Intervals [place] Rate: 58 P: -9 MT: 113 QRS: -18 QRSD: 92 T: 12 QT: 420 QTc: 414 Interpretive Statements SINUS BRADYCARDIA WITH SHORT MT INTERVAL LOW QRS VOLTAGE IN PRECORDIAL LEADS [QRS DEFLECTION < 1.0 mV IN CHEST LEADS] INCOMPLETE RIGHT BUNDLE BRANCH BLOCK Compared to ECG 01/27/2025 06:32:15 Short MT interval now present Incomplete right bundle-branch block now present Sinus rhythm no longer present Electronically Signed On 01-28-2025 12:45:56 FOOD AND NUTRITION SERVICES SUPERVISOR by Juaquin Thapa M.D. [email or web address] [id number]
[2025-01-27 09:41] VITALS: PULSE 65; RESP 15; O2SAT 95
[2025-01-27 10:02] VITALS: BP 127/78; PULSE 86; O2SAT 99
== END 2025-01-27 10:05 | disposition home or self-care (01) ==
PROVIDERS: Emergency Provider Family Medicine; PCP Family Medicine
DX: R07.89 Other chest pain (principal)
CPT/HCPCS: 36415; 71045; 80053; 84484; 85025; 93005; 99285

== ENCOUNTER 2025-06-14 22:13 | Outpatient (CLI) | payer OTHER, SELFPAY ==
[2025-06-14 23:05] LABS: HIV 1 & 2 Antigen Non-Reactive (Non-Reactiv)
[2025-06-14 23:27] LABS: Hepatitis B Surface Antigen Non-Reactive (Nonreactive)
== END 2025-06-14 22:14 | disposition home or self-care (01) ==
LOC: LAB 22:14
PROVIDERS: PCP Family Medicine; Visit Provider Family Medicine Sports Medicine
DX: Z01.89 Encounter for other specified special examinations (principal)
CPT/HCPCS: 36415; 86706; 86803; 87340; 87806

== ENCOUNTER 2025-06-15 07:57 | Emergency (ER) | payer OTHER, SELFPAY ==
--- OUTSIDE RECORDS SUMMARY | 2025-06-15 08:02 | XMS_ITS | Clinical Summary ---
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
--- OUTSIDE RECORDS SUMMARY | 2025-06-15 08:02 | XMS_ITS | Encounter Summary ---
Author Organization [facility] Address [address] [place] [address] Care Team Providers Care Recruiting Specialist Name Role Phone Unavailable Primary Care Provider Unavailabl e Encounter Details Date Type Department Care Team (Late st Contact Info) Description 07/11/2006 Emergency [facility] Emergency Department [address] 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
[2025-06-15 08:03] VITALS: BP 156/91; PULSE 71; RESP 18; TEMP 36.8; O2SAT 97
--- NOTE | 2025-06-15 08:13 | W.ED.GENADLT ---
HPI - General Adult General: Chief complaint: Needlestick/Injury/Exposure Stated complaint: Needle stick Time Seen by Provider: 06/15/25 08:04 History of Present Illness: 49-year-old female presents to the emergency room with complaints of work-related injury. She was stuck with a needle of the patient that is hep C and HIV positive. She was seen last night had baseline hepatitis and HIV panels drawn and did not have a CBC or a CMP returns today she would like to be placed on prophylactic medications. Patient was stuck by a 30-gauge needle after administering subcu insulin. Related Data Previous Rx's ?Medication ?Instructions ?Recorded bictegravir 50 mg-emtricitabine 1 tab PO DAILY #28 tabs 06/15/25 200 mg-tenofovir alafenam 25 mg tablet (Biktarvy) Allergies Allergy/AdvReac Type Severity Reaction Status Date / Time insect stings Allergy swelling Uncoded 05/04/23 14:00 [facility] ED PFSH: Medical History No pertinent past medical history neghx: htn,dm,thyroid,dvt/pe PCP: Dr. 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 Dx: NELY 2, Dysmenorrhea. Performed by Dr. Olguin at [facility] [place]. Pathology demonstrated NELY 1-- no high grade lesion. S/P tubal ligation (11/24/00) Performed at time of section by Dr. Encarnacion S/P section (11/24/00) With tubal ligation. Performed by Dr. Nunez at [facility] in [place], [place]. S/P carpal tunnel release (~2012) Bilateral Family History Mother Hypertension Heart disease Afib Thyroid disease Hyperlipidemia Father Hyperlipidemia Heart disease Afib Cancer Prostate cancer Denies family history of Colon cancer Ovarian cancer Diabetes Breast cancer Uterine cancer Stroke Female Reproductive History: Para: 2 Spontaneous abortions: No Physical Exam Const: COMMON NORMALS: no acute distress GENERAL APPEARANCE: cooperative and comfortable ORIENTATION/CONSCIOUSNESS: Yes awake, Yes oriented to person, Yes oriented to place and Yes oriented to time HENMT: COMMON NORMALS: normocephalic, atraumatic and hearing grossly normal bilaterally HEAD & SCALP: normocephalic and atraumatic Resp: COMMON NORMALS: normal respiratory effort, No retractions, No use of accessory muscles and clear to auscultation bilaterally AUSCULTATION: clear to auscultation bilaterally Cardio: COMMON NORMALS: regular rate, regular rhythm and No murmurs present (Cardio) RATE: regular rate RHYTHM: regular rhythm Neuro: SENSORIUM/ORIENTATION: Yes oriented to person, Yes oriented to place and Yes oriented to time Skin: COMMON NORMALS: no rashes or lesions noted GENERAL SKIN EXAM: no rashes or lesions noted Course Vital Signs: Vital signs: Vital Signs Temperature 98.2 F 06/15/25 08:03 Pulse Rate 71 06/15/25 08:03 Respiratory Rate 18 06/15/25 08:03 Blood Pressure 156/91 06/15/25 08:03 Pulse Oximetry 97 06/15/25 08:03 Oxygen Delivery Me thod Room Air 06/15/25 08:03 MDM - General Adult Medical Decision Making Reviewed with the patient she is at a very low risk for transmission due to the circumstances. The very small gauge needle and only using an subcu significantly will lower her risk of leo but it is not 0. Baseline CBC LFTs done today. Will start her on HIV prophylaxis and have her follow-up through employee health. [facility] daily for 28 days. Medical Records I reviewed the patient's medical records. Lab Data I reviewed the patient's lab results. 06/15/25 08:42 06/15/25 08:42 Laboratory Results WBC 7.19 10^3/uL (3.29-11.43) 06/15/25 08:42 RBC 3.97 10^6/uL (3.85-5.65) 06/15/25 08:42 Hgb 12.40 g/dL (11.27-16.99) 06/15/25 08:42 Hct 36.5 % (36-47) 06/15/25 08:42 MCV 91.9 fl (85-98) 06/15/25 08:42 MCH 31.2 pg (27-33) 06/15/25 08:42 MCHC 34.0 g/dL (30-55) 06/15/25 08:42 RDW 12.3 % (12.1-15.1) 06/15/25 08:42 Plt Count 238 10^3/cmm (157-399) 06/15/25 08:42 MPV 9.6 fL (7.4-10.4) 06/15/25 08:42 Neut % (Auto) 53.1 % 06/15/25 08:42 Lymph % (Auto) 37.3 % 06/15/25 08:42 [place] % (Auto) 6.7 % 06/15/25 08:42 Eos % (Auto) 1.9 % 06/15/25 08:42 Baso % (Auto) 0.7 % 06/15/25 08:42 Neut # (Auto) 3.82 10^3/uL (1.8-7.7) 06/15/25 08:42 Lymph # (Auto) 2.7 10^3/uL (0.8-4.8) 06/15/25 08:42 [place] # (Auto) 0.5 10^3/uL (0.2-0.9) 06/15/25 08:42 Eos # (Auto) 0.1 10^3/uL (0.0-0.8) 06/15/25 08:42 Baso # (Auto) 0.1 10^3/uL (0.0-0.1) 06/15/25 08:42 Nucleated RBC % (auto) 0 % 06/15/25 08:42 Nucleated RBCs # 0.0 /100WBC 06/15/25 08:42 Sodium 138 mmol/L (136-145) 06/15/25 08:42 Potassium 3.9 mmol/L (3.5-5.1) 06/15/25 08:42 Chloride 103 mmol/L (98-107) 06/15/25 08:42 Carbon Dioxide 21 mmol/L (22-29) L 06/15/25 08:42 Anion Gap 17.9 (5-19) 06/15/25 08:42 BUN 18 mg/dL (6-20) 06/15/25 08:42 Creatinine 0.7 mg/dL (0.5-0.9) 06/15/25 08:42 GFR Calculation 88.9 mL/min (90-130) L 06/15/25 08:42 Glucose 81 mg/dL (65-115) 06/15/25 08:42 Calculated Osmolality 287 mOsm/kg (285-295) 06/15/25 08:42 Calcium 8.9 mg/dL (8.5-10.5) 06/15/25 08:42 Total Bilirubin 0.4 mg/dL (0.15-1.2) 06/15/25 08:42 AST 23 U/L (0-32) 06/15/25 08:42 ALT 20 U/L (0-33) 06/15/25 08:42 Alkaline Phosphatase 89 U/L (35-105) 06/15/25 08:42 Total Protein 7.2 g/dL (6.6-8.7) 06/15/25 08:42 Albumin 4.2 g/dL (3.5-5.2) 06/15/25 08:42 Globulin 3.0 g/dL (1.3-4.6) 06/15/25 08:42 No radiology studies performed this visit Discharge Plan Discharge Patient Disposition: Home Clinical Impression: Needlestick injury due to non-hypodermic needle Condition: Stable Prescriptions: New Biktarvy 50-200-25 mg tablet 1 tab PO DAILY Qty: 28 0RF Discharge Orders: Discharge ED (Routine); Ordered 06/15/25 Ordered By: Hermilo Perkins Referrals: Dakota Bird MD [Primary Care Provider, [facility]] Patient Instructions: Opioid Safety, Pain Management, Patient Portal & [place] Instructions Activity Restrictions/Additional Instructions: Thank you for choosing [facility] for your healthcare needs today. It is very important that you follow up as instructed or that you return to the Emergency Department should you have concerns or if your condition changes or worsens in any way. You are seen in the emergency room after a needlestick. Will call in HIV prophylaxis medications for you to follow-up through [facility]. Print Language: Hungarian Coding Level of Care Code ED Hospice Massage Therapist for Vero Winchester
[2025-06-15 08:51] LABS: Hematocrit 36.5 % (36-47); Hemoglobin 12.40 g/dL (11.27-16.99); Mean Corpuscular HGB Conc 34.0 g/dL (30-55); Mean Corpuscular Hemoglobin 31.2 pg (27-33); Mean Corpuscular Volume 91.9 fl (85-98); Nucleated Red Blood Cells % 0 %; Platelet Count 238 10^3/cmm (157-399); Red Blood Count 3.97 10^6/uL (3.85-5.65); White Blood Count 7.19 10^3/uL (3.29-11.43)
[2025-06-15 09:12] LABS: Alanine Aminotransferase 20 U/L (0-33); Albumin Level 4.2 g/dL (3.5-5.2); Alkaline Phosphatase 89 U/L (35-105); Anion Gap 17.9 (5-19); Aspartate Amino Transferase 23 U/L (0-32); Blood Urea Nitrogen 18 mg/dL (6-20); Calcium 8.9 mg/dL (8.5-10.5); Carbon Dioxide 21 mmol/L (22-29); Chloride 103 mmol/L (98-107); Globulin 3.0 g/dL (1.3-4.6); Glucose 81 mg/dL (65-115); Osmolality Calculated 287 mOsm/kg (285-295); Potassium 3.9 mmol/L (3.5-5.1); Sodium 138 mmol/L (136-145); Total Protein 7.2 g/dL (6.6-8.7)
== END 2025-06-15 09:20 | disposition home or self-care (01) ==
PROVIDERS: Emergency Provider Family Medicine; PCP Family Medicine
DX: T14.8XXA Other injury of unspecified body region, initial encounter (principal); W46.0XXA Contact with hypodermic needle, initial encounter
CPT/HCPCS: 36415; 80053; 85025; 99283

== ENCOUNTER 2025-08-22 09:19 | Day surgery (SDC) | payer OTHER, SELFPAY ==
[2025-08-22 09:38] VITALS: BP 128/86; PULSE 98; RESP 18; TEMP 36.5; O2SAT 96; BMI 33.1
--- NOTE | 2025-08-22 09:56 | W.PM.OPSUD ---
Surgery/Procedure H&P Update DATE OF PROCEDURE: August 22, 2025 DATE H&P PERFORMED: 07/25/25 H&P UPDATE INFORMATION: I have reviewed H&P completed within last 30 days, I have examined patient prior to procedure, No changes to prior documentation, H&P is in [facility] EMR on date indicated and Risks and benefits of the procedure reviewed PLANNED PROCEDURE: Operation Date: 08/22/25 11:15 Proposed Procedures p Colonoscopy 50161 G0121 Z12.11(Not Applicable) - Juan Nicole MD
--- NOTE | 2025-08-22 09:58 | P.ANESASSM_ITS ---
Pre-Anesthetic Assessment Height/Weight: Height 1.73 m Weight 98.883 kg Temp Pulse Resp BP Pulse Ox O2 Del Method 97.7 F 98 18 128/86 96 Room Air 08/22/25 09:38 08/22/25 09:38 08/22/25 09:38 08/22/25 09:38 08/22/25 09:38 08/22/25 09:38 Preop Diagnosis: screening Operation Date: 08/22/25 11:15 Proposed Procedures p Colonoscopy [id number] Z12.11(Not Applicable) - Juan Nicole MD Was Beta Dennise taken within 24 hours: N/A Was Clonidine taken within 24 hours: N/A Last intake: Intake Last Liquid Date 08/21/25 Last Liquid Time 20:00 Last Solid Date 08/20/25 Last Solid Time 20:00 Social Alcohol weekly Exam alert and oriented x 3 Airway Submandibular: within normal limits Cervical ROM: within normal limits Mallampati: Class II Dentition: full Comments: Comments: left partial at home Pulmonary None reported CV/HEM Arrythmia (history of SVT has prn med; last episode 1.5 year ago) None reported Hepatic None reported GI Gastroesophageal Reflux Disease Metabolic None reported Musc/skel None reported Neuropsych None reported Anesthetic Plan ASA status: 2 Anesthesia: MAC Risk of > 500 ml blood loss (7ml/kg in children): No Medications/Allergies Home Medications ?Medication ?Instructions ?Recorded ?Confirmed ?Last Taken ?Type metoprolol tartrate 25 mg tablet 25 mg PO PRN PRN arry thmia 07/25/25 08/20/25 Unknown History tirzepatide (weight loss) 10 10 mg SUBCUT .WEEKLY 06/3008/20/25 08/12/25 History mg/0.5 mL subcutaneous pen injector (Zepbound) tramadol 50 mg tablet 50 mg PO .Q8HR PRN Pain 06/3008/20/25 08/19/25 History Allergies Allergy/AdvReac Type Severity Reaction Status Date / Time insect stings Allergy swelling Uncoded 08/20/25 07:53 Current Medications Generic Name Dose Route Start Last Admin Trade Name Freq PRN Reason Stop Dose Admin Sodium Chloride 1,000 mls @ 15 mls/hr 08/22/25 09:28 08/22/25 09:46 Sodium Chloride 0.9% IV 08/23/25 09:27 15 mls/hr .Q24H PRN Administration COLONOSCOPY FLUIDS PFSH Anesthesia Medical History No pertinent past medical history neghx: htn,dm,thyroid,dvt/pe PCP: Dr. 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 Dx: NELY 2, Dysmenorrhea. [place] [facility] [place] [facility] [place]ology demonstrated NELY 1-- no high grade lesion. S/P tubal ligation (11/24/00) Performed at time of section by Dr. Encarnacion S/P section (11/24/00) With tubal ligation. Performed by Dr. Nunez at [facility] in [place], [place]. S/P carpal tunnel release (~2012) Bilateral Family History Mother Hypertension Heart disease Afib Thyroid disease Hyperlipidemia Father Hyperlipidemia Heart disease Afib Cancer Prostate cancer Denies family history of Colon cancer Ovarian cancer Diabetes Breast cancer Uterine cancer Stroke Social History Smoking and tobacco/nicotine status: never used tobacco/nicotine Female Reproductive History Para: 2 Spontaneous abortions: No Data Anesthesia Cardiac Studies: Echocardiogram 05/06/23 Cardiac Event Monitor 04/29/23
[2025-08-22 10:51] VITALS: BP 107/66; PULSE 92; RESP 20; TEMP 36.1; O2SAT 97
--- NOTE | 2025-08-22 11:20 | ANE.PACU2 ---
Inpatient post-anesthesia follow up: Airway intact: Yes Vital signs: Temperature 97.0 F Pulse Rate 92 Respiratory Rate 20 Blood Pressure 107/66 Pulse Oximetry 97 Oxygen Delivery Me thod Room Air Oxygen Flow Rate Fraction of Inspir ed Oxygen Hydration adequate: Yes Nausea and vomiting: No Pain level: 1 Mental status: Baseline
== END 2025-08-22 11:20 | disposition home or self-care (01) ==
PROVIDERS: PCP Family Medicine; Visit Provider Surgery
PROC: 0DJD8ZZ Inspection of Lower Intestinal Tract, Via Natural or Artificial Opening Endoscopic (ICD-10-PCS; CPT 45378; principal; 2025-08-22 11:15)
DX: Z12.11 Encounter for screening for malignant neoplasm of colon (principal); D12.8 Benign neoplasm of rectum; K21.9 Gastro-esophageal reflux disease without esophagitis
CPT/HCPCS: 45385; 88305; J2704; J7030

== ENCOUNTER 2025-09-12 08:27 | Outpatient (CLI) | payer OTHER, SELFPAY ==
--- NOTE | 2025-09-12 08:32 | MM_ITS ---
WS: [id number] BILATERAL SCREENING DIGITAL TOMOSYNTHESIS MAMMOGRAM WITH CAD HISTORY: SCREENING COMPARISON: 08/31/2024, 11/17/2022, 06/21/2017 Bilateral CC and MLO views with tomosynthesis and synthetic mammography submitted. Computer aided detection analyzed. Breast composition: There are scattered areas of fibroglandular density. No suspicious masses, microcalcifications or architectural distortion. Stable asymmetries in the upper outer quadrant of each breast. MM/MM scr tomosynthesis [id number] IMPRESSION: BI-RADS: 2 - Benign. FOLLOW UP: 1 Year Follow-up
== END 2025-09-12 08:28 | disposition home or self-care (01) ==
LOC: RAD 08:29
PROVIDERS: PCP Family Medicine; Visit Provider Family Medicine
DX: Z12.31 Encounter for screening mammogram for malignant neoplasm of breast (principal); R92.323 Mammographic fibroglandular density, bilateral breasts; N64.89 Other specified disorders of breast
CPT/HCPCS: 77063; 77067